=== PATIENT | male | born 1960 | race African-American/Black ===

== ENCOUNTER 2020-06-03 23:37 | Inpatient (IN) | payer OTHER ==
[~2020-06-03] VITALS: Ht 195.6 cm; Wt 172.4 kg
[2020-06-04 00:20] LABS: BASOPHILS % 0.6 % (0.0-1.0); EOSINOPHILS # (AUTO) 0.2 (0.0-0.4); EOSINOPHILS % 2.3 % (0.0-6.0); HEMATOCRIT 40.4 % (38.2-49.6); HEMOGLOBIN 12.5 g/dL (14.0-18.0); LYMPHOCYTES # (AUTO) 2.4 (1.0-3.2); LYMPHOCYTES % 34.3 % (18.0-39.1); MEAN CORPUSCULAR HGB CONC 30.9 g/dL (31-35); MEAN CORPUSCULAR VOLUME 74.4 fL (81-99); MONOCYTES # (AUTO) 0.7 (0.2-0.8); MONOCYTES % 9.7 % (4.4-11.3); NEUTROPHILS # (AUTO) 3.7 (2.1-6.9); NEUTROPHILS % 52.8 % (38.7-80.0); PLATELET COUNT 185 x10e3/uL (140-360); RED BLOOD COUNT 5.43 x10e6/uL (4.3-5.7); RED CELL DISTRIBUTION WIDTH 17.6 % (11.7-14.4)
[2020-06-04 00:39] LABS: ALANINE AMINOTRANSFERASE 13 IU/L (0-55); ALBUMIN 3.4 g/dL (3.5-5.0); ALKALINE PHOSPHATASE 98 IU/L (40-150); ANION GAP 11.4 mmol/L (8-16); BLOOD UREA NITROGEN 11 mg/dL (7-26); BUN/CREATININE RATIO 10 (6-25); CALCIUM 8.8 mg/dL (8.4-10.2); CARBON DIOXIDE 26 mmol/L (22-29); CHLORIDE 107 mmol/L (98-107); CREATINE KINASE 297 IU/L (30-200); CREATININE, SERUM 1.09 mg/dL (0.72-1.25); EST GLOMERULAR FILTRATION RATE > 60 ML/MIN (60-); GLUCOSE 186 mg/dL (74-118); POTASSIUM 4.4 mmol/L (3.5-5.1); SODIUM 140 mmol/L (136-145)
[2020-06-04] MEDS ORDERED: MORPHINE SULFATE INJ 4 MG/ML INJ 1ML IV STA (01:43)
[2020-06-04] MEDS ORDERED: DEXAMETHASONE SOD PHOS 10 MG/1 ML VIAL IV ONE (01:45)
[2020-06-04] MEDS ORDERED: ASPIRIN 81 MG CHEW TAB PO ONE ×2 (02:15)
[2020-06-04] MEDS: ONDANSETRON HCL INJ 2MG/ML 2ML 2 MG/ML VIAL IV PRN (02:21)
[2020-06-04 03:30] VITALS: BP 126/84
[2020-06-04] MEDS: MORPHINE SULFATE INJ 4 MG/ML INJ 1ML IV PRN ×3 (07:58→23:24)
[2020-06-04 08:00] VITALS: BP 124/80
[2020-06-04] MEDS ORDERED: METFORMIN HCL500 MG PO (08:27)
[2020-06-04] MEDS ORDERED: GLIPIZIDE5 MG PO (08:27)
[2020-06-04] MEDS ORDERED: BUMETANIDE PO (08:28)
[2020-06-04] MEDS ORDERED: ATROVASTATIN (08:28)
[2020-06-04] MEDS ORDERED: GAPAPENTIN (08:28)
[2020-06-04] MEDS ORDERED: [UNRECOGNIZED DRUG - OTHER] PO (08:28)
[2020-06-04] MEDS: INSULIN LISPRO 100 UNIT/1 ML 3ML VIAL SQ SCH ×3 (08:54→21:00)
[2020-06-04 09:00] VITALS: BP 124/80
[2020-06-04] MEDS ORDERED: DEXTROSE 50% SYRINGE 50 ML IV PRN (09:00)
[2020-06-04] MEDS ORDERED: INSULIN LISPRO 100 UNIT/1 ML 3ML VIAL SQ ONE (09:01)
[2020-06-04 09:39] LABS: CREATINE KINASE 272 IU/L (30-200)
[2020-06-04] MEDS ORDERED: BENZONATATE 100 MG CAP PO PRN (09:45)
[2020-06-04] MEDS ORDERED: INSULIN GLARGINE 100 UNITS/ML VIAL SQ NR (10:00)
[2020-06-04 10:07] VITALS: BP 134/84
[2020-06-04] MEDS ORDERED: SODIUM CHLORIDE 0.9% 50ML 50 ML ONE (10:59)
[2020-06-04] MEDS ORDERED: IOPAMIDOL 370 MG/ML 200 ML INFUS..BTL INJ ONE (11:00)
[2020-06-04] MEDS: ALBUTEROL SULFATE HFA 8GM INHALATION AEROSOL INH SCH ×3 (11:35→18:00)
[2020-06-04] MEDS: IPRATROPIUM BROMIDE INHALER 12.9 GM INH INH SCH ×3 (11:35→19:00)
[2020-06-04] MEDS: GUAIFENESIN 600MG/DEXTROMETHORPHAN 30MG TABSR PO SCH ×2 (14:19→18:35)
[2020-06-04] MEDS: AZITHROMYCIN 500MG/NS 250 ML 250 ML IV SCH (14:19)
[2020-06-04] MEDS: GABAPENTIN 300 MG CAP PO SCH ×4 (14:19→22:55)
[2020-06-04] MEDS: CEFTRIAXONE SOD 1 GM in SODIUM CHLORIDE 0.9% 50ML 50 ML IV SCH (14:19)
[2020-06-04] MEDS: ENOXAPARIN SOD INJ 40 MG/0.4 ML SYR SC SCH ×2 (14:19→22:56)
[2020-06-04] MEDS: CHOLECALCIFEROL 1,000 UNIT TAB PO SCH (14:19)
[2020-06-04] MEDS: METHYLPREDNISOLONE SOD SUCC 40 MG/ML VIAL 1ML IV SCH ×2 (14:19→21:00)
[2020-06-04] MEDS: GLIPIZIDE 5 MG TAB PO SCH (14:19)
[2020-06-04] MEDS: METFORMIN HCL 500 MG TAB PO SCH ×2 (14:19→18:35)
[2020-06-04] MEDS: TELMISARTAN 40 MG TAB PO SCH (14:20)
[2020-06-04] MEDS ORDERED: SODIUM CHLORIDE 0.9% 100 ML ONE (14:48)
[2020-06-04 16:07] LABS: CREATINE KINASE 238 IU/L (30-200)
[2020-06-04] MEDS: ASCORBIC ACID 500 MG TAB PO SCH (18:35)
[2020-06-04 20:00] VITALS: BP 130/86
[2020-06-04 21:00] VITALS: BP 130/86
[2020-06-04] MEDS: INSULIN GLARGINE 100 UNITS/ML VIAL SQ SCH (21:00)
[2020-06-04] MEDS: ATORVASTATIN 10 MG TAB PO SCH (22:55)
[2020-06-05] VITALS (8 sets, daily range): BP systolic 120–141; BP diastolic 79–85
[2020-06-05] MEDS: IPRATROPIUM BROMIDE INHALER 12.9 GM INH INH SCH ×6 (00:54→19:00)
[2020-06-05] MEDS: ALBUTEROL SULFATE HFA 8GM INHALATION AEROSOL INH SCH ×6 (03:59→18:00)
[2020-06-05 05:19] LABS: BASOPHILS % 0.2 % (0.0-1.0); HEMATOCRIT 38.4 % (38.2-49.6); HEMOGLOBIN 12.1 g/dL (14.0-18.0); LYMPHOCYTES # (AUTO) 1.3 (1.0-3.2); LYMPHOCYTES % 11.2 % (18.0-39.1); MEAN CORPUSCULAR HEMOGLOBIN 22.9 pg (28-32); MEAN CORPUSCULAR HGB CONC 31.5 g/dL (31-35); MEAN CORPUSCULAR VOLUME 72.7 fL (81-99); MONOCYTES # (AUTO) 0.4 (0.2-0.8); MONOCYTES % 3.3 % (4.4-11.3); NEUTROPHILS # (AUTO) 9.6 (2.1-6.9); NEUTROPHILS % 84.5 % (38.7-80.0); PLATELET COUNT 182 x10e3/uL (140-360); RED BLOOD COUNT 5.28 x10e6/uL (4.3-5.7); RED CELL DISTRIBUTION WIDTH 17.6 % (11.7-14.4)
[2020-06-05 05:54] LABS: ALANINE AMINOTRANSFERASE 11 IU/L (0-55); ALBUMIN 3.3 g/dL (3.5-5.0); ALKALINE PHOSPHATASE 81 IU/L (40-150); ANION GAP 14.9 mmol/L (8-16); BLOOD UREA NITROGEN 15 mg/dL (7-26); BUN/CREATININE RATIO 15 (6-25); CALCIUM 8.7 mg/dL (8.4-10.2); CARBON DIOXIDE 21 mmol/L (22-29); CHLORIDE 103 mmol/L (98-107); CREATININE, SERUM 1.02 mg/dL (0.72-1.25); EST GLOMERULAR FILTRATION RATE > 60 ML/MIN (60-); GLUCOSE 294 mg/dL (74-118); POTASSIUM 4.9 mmol/L (3.5-5.1); SODIUM 134 mmol/L (136-145)
[2020-06-05 06:34] LABS: MAGNESIUM 1.9 MG/DL (1.3-2.1); PHOSPHORUS 2.8 MG/DL (2.3-4.7)
[2020-06-05 06:47] LABS: THYROID STIMULATING HORMONE 0.015 uIU/mL (0.350-4.940)
[2020-06-05] MEDS: INSULIN LISPRO 100 UNIT/1 ML 3ML VIAL SQ SCH ×4 (07:30→21:47)
[2020-06-05] MEDS: METHYLPREDNISOLONE SOD SUCC 40 MG/ML VIAL 1ML IV SCH ×3 (08:42→21:07)
[2020-06-05] MEDS: GLIPIZIDE 5 MG TAB PO SCH (08:42)
[2020-06-05] MEDS: METFORMIN HCL 500 MG TAB PO SCH ×2 (08:43→16:15)
[2020-06-05] MEDS: GABAPENTIN 300 MG CAP PO SCH ×4 (08:43→21:07)
[2020-06-05] MEDS: GUAIFENESIN 600MG/DEXTROMETHORPHAN 30MG TABSR PO SCH ×2 (08:43→16:15)
[2020-06-05] MEDS: TELMISARTAN 40 MG TAB PO SCH (08:43)
[2020-06-05] MEDS: CHOLECALCIFEROL 1,000 UNIT TAB PO SCH (08:44)
[2020-06-05] MEDS: ENOXAPARIN SOD INJ 40 MG/0.4 ML SYR SC SCH ×2 (08:44→21:07)
[2020-06-05] MEDS: ASCORBIC ACID 500 MG TAB PO SCH ×2 (08:44→16:15)
[2020-06-05] MEDS ORDERED: SODIUM CHLORIDE 0.9% 250ML 250 ML ONE (08:55)
[2020-06-05] MEDS: AZITHROMYCIN 500MG/NS 250 ML 250 ML IV SCH (09:09)
[2020-06-05 09:25] LABS: CREATINE KINASE MB 1.5 ng/mL (0-5.0)
[2020-06-05] MEDS: CEFTRIAXONE SOD 1 GM in SODIUM CHLORIDE 0.9% 50ML 50 ML IV SCH (10:00)
[2020-06-05] MEDS: ONDANSETRON HCL INJ 2MG/ML 2ML 2 MG/ML VIAL IV PRN ×2 (13:44→14:10)
[2020-06-05] MEDS: MORPHINE SULFATE INJ 4 MG/ML INJ 1ML IV PRN ×2 (13:44→14:10)
[2020-06-05] MEDS: ATORVASTATIN 10 MG TAB PO SCH (21:07)
[2020-06-05] MEDS: INSULIN GLARGINE 100 UNITS/ML VIAL SQ SCH (21:48)
[2020-06-06] VITALS (7 sets, daily range): BP systolic 114–149; BP diastolic 78–94
[2020-06-06] MEDS: MORPHINE SULFATE INJ 4 MG/ML INJ 1ML IV PRN ×3 (00:24→15:17)
[2020-06-06] MEDS: IPRATROPIUM BROMIDE INHALER 12.9 GM INH INH SCH ×4 (01:00→19:00)
[2020-06-06] MEDS: METHYLPREDNISOLONE SOD SUCC 40 MG/ML VIAL 1ML IV SCH ×3 (05:48→22:00)
[2020-06-06] MEDS: ALBUTEROL SULFATE HFA 8GM INHALATION AEROSOL INH SCH ×4 (07:20→18:00)
[2020-06-06] MEDS: GLIPIZIDE 5 MG TAB PO SCH (08:57)
[2020-06-06] MEDS: METFORMIN HCL 500 MG TAB PO SCH ×2 (08:57→16:27)
[2020-06-06] MEDS: TELMISARTAN 40 MG TAB PO SCH (08:58)
[2020-06-06] MEDS: CHOLECALCIFEROL 1,000 UNIT TAB PO SCH (08:59)
[2020-06-06] MEDS: GABAPENTIN 300 MG CAP PO SCH ×4 (08:59→21:00)
[2020-06-06] MEDS: GUAIFENESIN 600MG/DEXTROMETHORPHAN 30MG TABSR PO SCH ×2 (08:59→16:27)
[2020-06-06] MEDS: ENOXAPARIN SOD INJ 40 MG/0.4 ML SYR SC SCH ×2 (08:59→21:00)
[2020-06-06] MEDS: ASCORBIC ACID 500 MG TAB PO SCH ×2 (08:59→16:27)
[2020-06-06] MEDS: CEFTRIAXONE SOD 1 GM in SODIUM CHLORIDE 0.9% 50ML 50 ML IV SCH (09:00)
[2020-06-06] MEDS: ONDANSETRON HCL INJ 2MG/ML 2ML 2 MG/ML VIAL IV PRN (09:24)
[2020-06-06] MEDS: INSULIN LISPRO 100 UNIT/1 ML 3ML VIAL SQ SCH ×5 (10:13→21:00)
[2020-06-06] MEDS: AZITHROMYCIN 500MG/NS 250 ML 250 ML IV SCH (10:59)
[2020-06-06] MEDS: ATORVASTATIN 10 MG TAB PO SCH (21:00)
[2020-06-06] MEDS ORDERED: INSULIN GLARGINE 100 UNITS/ML VIAL SQ SCH (21:00)
[2020-06-07] VITALS (8 sets, daily range): BP systolic 116–151; BP diastolic 78–96
[2020-06-07] MEDS: MORPHINE SULFATE INJ 4 MG/ML INJ 1ML IV PRN ×4 (00:45→22:11)
[2020-06-07] MEDS: IPRATROPIUM BROMIDE INHALER 12.9 GM INH INH SCH ×3 (01:00→13:00)
[2020-06-07] MEDS: METHYLPREDNISOLONE SOD SUCC 40 MG/ML VIAL 1ML IV SCH ×3 (05:29→21:46)
[2020-06-07] MEDS: ALBUTEROL SULFATE HFA 8GM INHALATION AEROSOL INH SCH ×4 (06:00→21:42)
[2020-06-07] MEDS: INSULIN LISPRO 100 UNIT/1 ML 3ML VIAL SQ SCH ×7 (07:30→21:00)
[2020-06-07] MEDS: ENOXAPARIN SOD INJ 40 MG/0.4 ML SYR SC SCH ×2 (09:30→21:46)
[2020-06-07] MEDS: CHOLECALCIFEROL 1,000 UNIT TAB PO SCH (09:30)
[2020-06-07] MEDS: TELMISARTAN 40 MG TAB PO SCH (09:30)
[2020-06-07] MEDS: GABAPENTIN 300 MG CAP PO SCH ×4 (09:30→21:47)
[2020-06-07] MEDS: METFORMIN HCL 500 MG TAB PO SCH ×2 (09:30→17:16)
[2020-06-07] MEDS: ASCORBIC ACID 500 MG TAB PO SCH ×2 (09:30→17:16)
[2020-06-07] MEDS: GUAIFENESIN 600MG/DEXTROMETHORPHAN 30MG TABSR PO SCH ×2 (09:30→17:16)
[2020-06-07] MEDS: CEFTRIAXONE SOD 1 GM in SODIUM CHLORIDE 0.9% 50ML 50 ML IV SCH (09:49)
[2020-06-07] MEDS: AZITHROMYCIN 500MG/NS 250 ML 250 ML IV SCH (10:33)
[2020-06-07] MEDS: INSULIN GLARGINE 100 UNITS/ML VIAL SQ SCH (21:00)
[2020-06-07] MEDS: ATORVASTATIN 10 MG TAB PO SCH (21:46)
[2020-06-08] VITALS (7 sets, daily range): BP systolic 118–151; BP diastolic 82–98
[2020-06-08] MEDS: IPRATROPIUM BROMIDE INHALER 12.9 GM INH INH SCH ×5 (00:31→19:45)
[2020-06-08] MEDS: ALBUTEROL SULFATE HFA 8GM INHALATION AEROSOL INH SCH ×4 (01:30→17:07)
[2020-06-08] MEDS: MORPHINE SULFATE INJ 4 MG/ML INJ 1ML IV PRN ×3 (02:21→13:39)
[2020-06-08] MEDS: METHYLPREDNISOLONE SOD SUCC 40 MG/ML VIAL 1ML IV SCH ×3 (05:22→22:00)
[2020-06-08] MEDS: CHOLECALCIFEROL 1,000 UNIT TAB PO SCH (08:33)
[2020-06-08] MEDS: ASCORBIC ACID 500 MG TAB PO SCH ×2 (08:33→17:06)
[2020-06-08] MEDS: GABAPENTIN 300 MG CAP PO SCH ×4 (08:33→21:48)
[2020-06-08] MEDS: ENOXAPARIN SOD INJ 40 MG/0.4 ML SYR SC SCH ×2 (08:33→21:48)
[2020-06-08] MEDS: TELMISARTAN 40 MG TAB PO SCH (08:33)
[2020-06-08] MEDS: GUAIFENESIN 600MG/DEXTROMETHORPHAN 30MG TABSR PO SCH ×2 (08:33→17:06)
[2020-06-08] MEDS: METFORMIN HCL 500 MG TAB PO SCH ×2 (08:33→17:06)
[2020-06-08] MEDS: INSULIN LISPRO 100 UNIT/1 ML 3ML VIAL SQ SCH ×7 (08:43→22:01)
[2020-06-08] MEDS: CEFTRIAXONE SOD 1 GM in SODIUM CHLORIDE 0.9% 50ML 50 ML IV SCH (10:07)
[2020-06-08] MEDS: AZITHROMYCIN 500MG/NS 250 ML 250 ML IV SCH (10:54)
[2020-06-08] MEDS: ATORVASTATIN 10 MG TAB PO SCH (21:47)
[2020-06-08] MEDS: INSULIN GLARGINE 100 UNITS/ML VIAL SQ SCH (22:37)
[2020-06-09] VITALS: BP 131/88
[2020-06-09] MEDS: MORPHINE SULFATE INJ 4 MG/ML INJ 1ML IV PRN (00:28)
[2020-06-09] MEDS: IPRATROPIUM BROMIDE INHALER 12.9 GM INH INH SCH ×3 (00:50→12:49)
[2020-06-09] MEDS: ALBUTEROL SULFATE HFA 8GM INHALATION AEROSOL INH SCH ×3 (00:50→12:00)
[2020-06-09 04:00] VITALS: BP 131/98
[2020-06-09] MEDS: METHYLPREDNISOLONE SOD SUCC 40 MG/ML VIAL 1ML IV SCH (06:33)
[2020-06-09 08:00] VITALS: BP 134/100
[2020-06-09 08:51] VITALS: BP 134/100
[2020-06-09] MEDS: GABAPENTIN 300 MG CAP PO SCH ×2 (09:00→12:15)
[2020-06-09] MEDS: INSULIN LISPRO 100 UNIT/1 ML 3ML VIAL SQ SCH ×4 (09:22→11:30)
[2020-06-09] MEDS: METFORMIN HCL 500 MG TAB PO SCH (09:23)
[2020-06-09] MEDS: TELMISARTAN 40 MG TAB PO SCH (09:24)
[2020-06-09] MEDS: ASCORBIC ACID 500 MG TAB PO SCH (09:24)
[2020-06-09] MEDS: GUAIFENESIN 600MG/DEXTROMETHORPHAN 30MG TABSR PO SCH (09:24)
[2020-06-09] MEDS: ENOXAPARIN SOD INJ 40 MG/0.4 ML SYR SC SCH (09:24)
[2020-06-09] MEDS: CHOLECALCIFEROL 1,000 UNIT TAB PO SCH (09:24)
[2020-06-09] MEDS: CEFTRIAXONE SOD 1 GM in SODIUM CHLORIDE 0.9% 50ML 50 ML IV SCH (09:30)
[2020-06-09] MEDS ORDERED: ONDANSETRON HCL 4 MG ORAL DISINTEGRATING TAB PO PRN (09:45)
[2020-06-09] MEDS: AZITHROMYCIN 500MG/NS 250 ML 250 ML IV SCH (10:00)
[2020-06-09 12:37] VITALS: BP 145/95
== END 2020-06-09 15:32 | disposition home or self-care (01) | DRG 194 ==
LOC: ER 23:42 → ERHOLD 06-04 02:22 → MED/SURG3 06-04 03:30 → EDBD 06-04 09:38 → OBSVTOIN 06-04 09:38
PROVIDERS: ADMIT Internal Medicine; ATTEND Internal Medicine
DX: J18.9 Pneumonia, unspecified organism (principal); Z68.42 Body mass index [BMI] 45.0-49.9, adult; J20.9 Acute bronchitis, unspecified; Z20.822 Contact with and (suspected) exposure to COVID-19; E04.9 Nontoxic goiter, unspecified; E11.65 Type 2 diabetes mellitus with hyperglycemia; I10 Essential (primary) hypertension; E11.40 Type 2 diabetes mellitus with diabetic neuropathy, unspecified; M54.5 Low back pain; G89.29 Other chronic pain; E78.5 Hyperlipidemia, unspecified; R05 Cough; R43.8 Other disturbances of smell and taste
CPT/HCPCS: 36415; 71045; 71260; 76536; 80053; 82550; 82553; 82948; 83036; 83735; 83880; 84100; 84439; 84443; 84481; 84484; 85025; 86376; 93005; 93306; 94664; 96372; 99284; J0456; J0696; J1100; J1650; J1815; J2270; J2405; J2920; J7050; Q9967; U0002